=== PATIENT | male | born 1990 | race African-American/Black ===

== ENCOUNTER 2018-07-16 23:32 | Emergency (ER) | payer MEDICAID ==
[~2018-07-16] VITALS: Ht 190.5 cm; Wt 113.4 kg
[2018-07-16] MEDS ORDERED: NKM (23:54)
[2018-07-17] MEDS ORDERED: Augmentin 875mg Tab ORAL ONE (00:15)
[2018-07-17] MEDS ORDERED: AUGMENTIN 875-1 EAC1 ORAL (00:16)
[2018-07-17] MEDS ORDERED: IBUPROFEN600 MG ORAL (00:16)
--- NOTE | 2018-07-17 00:17 | Emergency Room Report ---
History of Present Illness General Chief Complaint: Flu Like Symptoms Source: Patient Present Illness HPI Is a 28-year-old male with no past medical history. He is here with his for the same complaint. He presents with chief complaint of fever and sore throat his been ongoing for 3 days. No nausea no vomiting. No cough or congestion. Worse with swallowing. Better with rest. No drooling. Pain is 8 out of 10. Allergies: Coded Allergies: No Known Allergies (Unverified , 07/16/18) Patient History Past Medical History: none, see triage record, old chart reviewed Past Surgical History: none Pertinent Family History: none Social History: Denies: drug use Immunizations: other Reviewed Nursing Documentation: PMH: Agreed; PSxH: Agreed Nursing Documentation-PMH Past Medical History: No History, Except For Hx Asthma: Yes Review of Systems Constitutional: Reports: fever Eye: Denies: eye pain, blurred vision ENT: Reports: throat pain, throat swelling; Denies: ear pain, nose congestion Respiratory: Denies: cough, shortness of breath Cardiovascular: Denies: chest pain, palpitations Gastrointestinal: Denies: abdominal pain, diarrhea, nausea, vomiting Musculoskeletal: Denies: back pain, joint pain Skin: Denies: rash Neurological: Denies: headache, numbness Endocrine: Denies: increased thirst, increased urine Hematologic/Lymphatic: Denies: easy bruising All Other Systems: negative except mentioned in HPI Physical Exam Vital Signs Date Time Temp Pulse Resp B/P (MAP) Pulse Ox O2 Delivery O2 Flow Rate FiO2 07/16/18 23:51 99.2 91 16 132/84 95 99.1 vitals with a low-grade temperature Sp02 EP Interpretation: reviewed, normal General Appearance: well appearing, no apparent distress, alert Head: normocephalic, atraumatic Eyes: bilateral eye PERRL, bilateral eye EOMI ENT: hearing grossly normal, TMs + canals normal, moist mucus membranes, tonsillar swelling, pharyngeal erythema, tonsillar exudate Neck: full range of motion, supple, no meningismus Respiratory: chest non-tender, lungs clear, normal breath sounds Cardiovascular #1: regular rate, rhythm, no murmur Gastrointestinal: normal bowel sounds, non tender, no mass, no organomegaly, no bruit, non-distended Musculoskeletal: back normal, gait/station normal, normal range of motion Psychiatric: mood/affect normal Skin: warm/dry Medical Decision Making Diagnostic Impression: Primary Impression: Acute tonsillitis Qualified Codes: J03.90 - Acute tonsillitis, unspecified ER Course Patient present with acute tonsillitis. Differential include strep versus viral infection. He has no other symptoms of a viral infection. We'll go ahead and treat with antibiotics. No evidence of peritonsillar abscess, retropharyngeal abscess or Matteo angina. We'll discharge home. Last Vital Signs Date Time Temp Pulse Resp B/P (MAP) Pulse Ox O2 Delivery O2 Flow Rate FiO2 07/16/18 23:51 99.2 91 16 132/84 95 99.1 Status: improved Disposition: HOME, SELF-CARE Condition: Stable Scripts Amoxicillin/Potassium Clav 875-125* (AUGMENTIN 875-125 TABLET*) 1 Each Tablet 1 TAB ORAL TWICE A DAY, #14 TAB Prov: FAINA MCCORMACK M.D. 07/17/18 Ibuprofen* (MOTRIN*) 600 Mg Tablet 600 MG ORAL THREE TIMES A DAY, #30 TAB 0 Refills Prov: FAINA MCCORMACK M.D. 07/17/18 Additional Instructions: Increase fluids. Salt water gargle. Follow-up with your DrColin in 3-5 days for recheck. Return if worse. FAINA MCCORMACK M.D. Jul 17, 2018 00:17
[2018-07-17 00:30] VITALS: BP 128/70
[2018-07-17 00:38] VITALS: BP 128/70
== END 2018-07-17 00:38 | disposition home or self-care (01) ==
LOC: EMR 23:59
DX: J03.90 Acute tonsillitis, unspecified (principal); R50.9 Fever, unspecified
CPT/HCPCS: 99283; J7512